=== PATIENT | female | born 1955 ===

== ENCOUNTER 2021-11-08 16:43 | Inpatient (IN) | payer OTHER, MEDICAID ==
[~2021-11-08] VITALS: Ht 165.1 cm; Wt 55.0 kg
[2021-11-08] MEDS ORDERED: InsuLIN REG 1unit/0.01ml Soln (100units/ml) IV ONE (17:15)
[2021-11-08 18:45] LABS: Basophils # (auto) 0 10 ^3/uL (0-0.2); Basophils % (auto) 0.1 % (0.0-2.0); Eosinophils # (auto) 0 10 ^3/uL (0-0.8); Eosinophils % (auto) 0.1 % (0.0-7.0); Hematocrit 32.5 % (36.0-46.0); Hemoglobin 10.6 g/dL (12.2-16.2); Lymphocytes # (auto) 0.5 10 ^3/uL (0.4-5.4); Lymphocytes % (auto) 2.5 % (10.0-50.0); Mean Corpuscular Hgb Conc. 32.6 g/dL (32.0-36.0); Mean Corpuscular Volume 88.9 fL (80.0-100.0); Monocytes # (auto) 0.7 10 ^3/uL (0-1.3); Monocytes % (auto) 3.7 % (0.0-12.0); Neutrophils # (auto) 17.4 10 ^3/uL (1.6-8.6); Neutrophils % (auto) 93.6 % (37.0-80.0); Red Blood Cells 3.65 10^6/uL (4.0-5.20); Red Cell Distribution Width 12.5 % (11.8-14.3); White Blood Cell 18.6 10^3/uL (4.4-10.8)
[2021-11-08 19:01] LABS: Albumin 1.9 g/dL (3.4-5.0); Calcium 8.4 mg/dL (8.5-10.1); Potassium 3.7 mmol/L (3.5-5.1)
[2021-11-08 19:03] LABS: BUN/Creatinine Ratio 15.4
[2021-11-08 19:08] LABS: Bilirubin, Total 0.5 mg/dL (0.2-1.0); Total Protein 6.7 g/dL (6.4-8.2)
[2021-11-09 05:17] LABS: Urine Bacteria MANY /hpf (None Seen); Urine Blood TRACE /uL (Negative); Urine Specific Gravity 1.015 (1.001-1.035); Urine WBC 63 /hpf (0 - 5); Urine WBC Clumps PRESENT /hpf (None Seen)
[2021-11-09] MEDS ORDERED: DEXTROSE (50%) 50ML SYRG IV PRN (06:30)
[2021-11-09] MEDS ORDERED: ONDANSETRON HCL 4 MG/2 ML VIAL IV PRN (06:30)
[2021-11-09] MEDS ORDERED: TEMAZEPAM 15 MG CAP PO PRN (06:30)
[2021-11-09] MEDS: InsuLIN REG 1unit/0.01ml Soln (100units/ml) SC SCH ×4 (06:58→21:05)
[2021-11-09] MEDS: levoFLOXacin 500MG 100 ML IV SCH (06:59)
[2021-11-09] MEDS: ACCU-CHEK COMFORT CURVE STRIP VI SCH ×3 (07:05→17:16)
[2021-11-09] MEDS: PANTOPRAZOLE 40 MG TAB PO SCH (10:16)
[2021-11-09] MEDS: ENOXAPARIN SOD 40 MG/0.4 ML SYRINGE SC SCH (10:16)
[2021-11-09] MEDS: ACETAMINOPHEN 325 MG TAB PO PRN (10:20)
[2021-11-09 19:24] VITALS: BP 122/63
[2021-11-09] MEDS ORDERED: METF-370 PO (19:48)
[2021-11-09 20:00] VITALS: BP 128/70
[2021-11-09] MEDS: INSULIN 70/30 1unit/0.01ml Susp (100units/ml) SC SCH (21:04)
[2021-11-10] MEDS: ACCU-CHEK COMFORT CURVE STRIP VI SCH ×5 (06:08→23:00)
[2021-11-10] MEDS: InsuLIN REG 1unit/0.01ml Soln (100units/ml) SC SCH ×4 (07:00→23:00)
[2021-11-10 08:11] LABS: Basophils # (auto) 0.1 10 ^3/uL (0-0.2); Basophils % (auto) 0.5 % (0.0-2.0); Eosinophils # (auto) 0.1 10 ^3/uL (0-0.8); Eosinophils % (auto) 0.8 % (0.0-7.0); Hematocrit 31.5 % (36.0-46.0); Hemoglobin 10.5 g/dL (12.2-16.2); Lymphocytes # (auto) 2.2 10 ^3/uL (0.4-5.4); Lymphocytes % (auto) 20.8 % (10.0-50.0); Mean Corpuscular Hemoglobin 29.5 pg (28.0-32.0); Mean Corpuscular Hgb Conc. 33.4 g/dL (32.0-36.0); Mean Corpuscular Volume 88.5 fL (80.0-100.0); Monocytes # (auto) 0.9 10 ^3/uL (0-1.3); Monocytes % (auto) 8.2 % (0.0-12.0); Neutrophils # (auto) 7.6 10 ^3/uL (1.6-8.6); Neutrophils % (auto) 69.7 % (37.0-80.0); Red Blood Cells 3.56 10^6/uL (4.0-5.20); Red Cell Distribution Width 12.8 % (11.8-14.3); White Blood Cell 10.8 10^3/uL (4.4-10.8)
[2021-11-10 08:34] LABS: BUN/Creatinine Ratio 17.5; Bilirubin, Total 0.2 mg/dL (0.2-1.0); Calcium 8.6 mg/dL (8.5-10.1); Magnesium 1.8 mg/dL (1.6-2.6); Total Protein 5.9 g/dL (6.4-8.2)
[2021-11-10 09:00] VITALS: BP 115/65
[2021-11-10] MEDS: ACETAMINOPHEN 325 MG TAB PO PRN (09:49)
[2021-11-10] MEDS: PANTOPRAZOLE 40 MG TAB PO SCH (09:50)
[2021-11-10] MEDS: ENOXAPARIN SOD 40 MG/0.4 ML SYRINGE SC SCH (09:50)
[2021-11-10] MEDS: INSULIN 70/30 1unit/0.01ml Susp (100units/ml) SC SCH ×2 (10:06→22:59)
[2021-11-10] MEDS: levoFLOXacin 500MG 100 ML IV SCH (10:07)
[2021-11-10 13:00] VITALS: BP 93/54
[2021-11-10] MEDS ORDERED: ERGOCALCIFEROL 50,000 UNIT(1.25MG) CAP PO SCH (15:00)
[2021-11-10 17:00] VITALS: BP 129/75
[2021-11-10 20:00] VITALS: BP_SYST 116; BP_SYST 152; BP_DIAS 67; BP_DIAS 77
[2021-11-11 04:00] VITALS: BP_SYST 113; BP_SYST 152; BP_DIAS 53; BP_DIAS 99
[2021-11-11] MEDS: ACCU-CHEK COMFORT CURVE STRIP VI SCH ×2 (06:34→12:30)
[2021-11-11] MEDS: InsuLIN REG 1unit/0.01ml Soln (100units/ml) SC SCH ×2 (06:34→12:35)
[2021-11-11 08:56] LABS: BUN/Creatinine Ratio 29.4; Magnesium 2.6 mg/dL (1.6-2.6); Potassium 3.9 mmol/L (3.5-5.1)
[2021-11-11 09:00] VITALS: BP 120/63
[2021-11-11] MEDS: ACETAMINOPHEN 325 MG TAB PO PRN (09:19)
[2021-11-11] MEDS: INSULIN 70/30 1unit/0.01ml Susp (100units/ml) SC SCH (09:20)
[2021-11-11] MEDS: ENOXAPARIN SOD 40 MG/0.4 ML SYRINGE SC SCH (09:20)
[2021-11-11] MEDS: levoFLOXacin 500MG 100 ML IV SCH (10:00)
[2021-11-11] MEDS ORDERED: GLIP5TAB12 PO (10:34)
[2021-11-11] MEDS ORDERED: ERGO1CAP23 PO (10:34)
[2021-11-11] MEDS ORDERED: METF-929 PO (10:34)
[2021-11-11] MEDS ORDERED: EMPA1TAB3 PO (10:34)
[2021-11-11] MEDS ORDERED: BLOO-89 XX (10:57)
[2021-11-11] MEDS ORDERED: BLOO1KIT60 XX (10:57)
[2021-11-11] MEDS ORDERED: LANC-347 XX (10:57)
[2021-11-11 13:00] VITALS: BP 122/55
[2021-11-11 13:02] VITALS: BP 112/55
== END 2021-11-11 14:11 | disposition home or self-care (01) | DRG 637 ==
LOC: ER 16:43 → EDBD 16:43 → OVERFLOW 11-09 06:17 → CENTRAL 11-09 18:44
PROVIDERS: ADMIT Nurse Practitioner; ATTEND Internal Medicine
DX: E11.65 Type 2 diabetes mellitus with hyperglycemia (principal); E43 Unspecified severe protein-calorie malnutrition; J98.11 Atelectasis; N30.00 Acute cystitis without hematuria; J81.1 Chronic pulmonary edema; D64.9 Anemia, unspecified; G90.8 Other disorders of autonomic nervous system; Z20.822 Contact with and (suspected) exposure to COVID-19; I10 Essential (primary) hypertension; R42 Dizziness and giddiness; E55.9 Vitamin D deficiency, unspecified; D72.829 Elevated white blood cell count, unspecified; R22.9 Localized swelling, mass and lump, unspecified; Z79.84 Long term (current) use of oral hypoglycemic drugs; Z88.0 Allergy status to penicillin; Z68.20 Body mass index [BMI] 20.0-20.9, adult
CPT/HCPCS: 36415; 71045; 76881; 80048; 80053; 80061; 81001; 82306; 82962; 83036; 83605; 83735; 83880; 84443; 84484; 85025; 87040; 87077; 87186; 87426; 93005; 93306; 96365; 96372; 96375; G0378; J1815; J1956